=== PATIENT | female | born 1990 | race Caucasian/White ===

== ENCOUNTER 2017-02-16 11:26 | Observation (INO) | payer BC, OTHER ==
[~2017-02-16] VITALS: Ht 160 cm; Wt 87.5 kg
[~2017-02-16 11:26] MED LIST: NORCO 5-325 TA1 EACH PO; PHENERGAN 25 MG25 M1 PO
[2017-03-12] MEDS ORDERED: COLACE 100MG C100 MG PO (12:10)
== END 2017-02-17 11:22 | disposition home or self-care (01) ==
LOC: GENOP 11:26 → OB 13:29 → ZEROF 13:29 → OB 13:29
PROVIDERS: ADMIT Obstetrics & Gynecology
DX: O47.03 False labor before 37 completed weeks of gestation, third trimester (principal); O23.43 Unspecified infection of urinary tract in pregnancy, third trimester; Z3A.34 34 weeks gestation of pregnancy; Z90.49 Acquired absence of other specified parts of digestive tract; Z79.899 Other long term (current) drug therapy
CPT/HCPCS: 81001; 96360; 96361; 96372; G0378; J0702; J7120